=== PATIENT | female | born 1995 | race Caucasian/White ===

== ENCOUNTER → 2020-02-06 | Outpatient (CLI) | payer MEDICAID ==
--- NOTE | 2020-02-06 12:23 | US ---
EXAMINATION TYPE: US OB >= 14 wk fetus DATE OF EXAM: 02/06/2020 COMPARISON: None CLINICAL HISTORY: 24-year-old female O36.63X0 Larger for dates TECHNIQUE: Transabdominal (TA) FINDINGS: GESTATIONAL AGE / DATING Physician Established: (36 weeks/1 day) EDC: 03/04/2020 Dates by LMP: (36 weeks/1 day) EDC: 03/04/2020 Dates by First Scan: No previous Dates by Current Scan: (35 weeks/6 days) EDC: 03/06/2020 Beta HCG (if available): NA SURVEY IUP: Single PLACENTA: Anterior; several venous lakes are noted with largest mid placenta = 2.1 x 1.5 x 1.9cm PREVIA: No Previa CHADWICK: 13.2 cm Normal CERVICAL LENGTH (transabdominal: norm > 3.0cm): 3.5 cm BIOMETRY PRESENTATION: Vertex LIE: Longitudinal BPD: 9.1 cm 36 weeks / 5 days HC: 32.2 cm 36 weeks / 3 days AC: 32.4 cm 36 weeks / 2 days FL: 70 cm 35 weeks / 6 days ESTIMATED WEIGHT IN GRAMS: 2889 grams ESTIMATED WEIGHT IN LBS/OZ: 6 lbs. 6 oz. WEIGHT PERCENTAGE BASED ON ESTABLISHED DATES: 54.9% HC/AC: 0.99 Normal FL/AC: 21.63 Normal HEART RATE: 159 bpm RHYTHM: Normal Staff Development Nurse notes: Single, live IUP, 35 weeks/6 days, EDC: 03/06/2020, HR 159bpm; placental venous la kes are noted. IMPRESSION: 1. Single live intrauterine with estimated gestational age of 36 weeks 1 day by LMP. Curren t ultrasound biometry is concordant (35 weeks 6 days) placing the child at the 55th percentile for we ight. 2. Exam not performed for anatomy. 3. A few scattered venous lakes noted in the placenta measuring up to 2.1 cm.
== END | disposition home or self-care (01) ==
LOC: RADUSWWP 08:59
PROVIDERS: ATTEND Obstetrics & Gynecology
DX: O36.63X0 Maternal care for excessive fetal growth, third trimester, not applicable or unspecified (principal); Z3A.35 35 weeks gestation of pregnancy
CPT/HCPCS: 76805

== ENCOUNTER 2020-03-01 09:05 | Inpatient (IN) | payer MEDICAID ==
[~2020-03-01 09:05] MED LIST: ROPIVACAINE 5MG/ML 20ML VIAL ONE; SODIUM CHLORIDE 0.9% 100 ML BAG ONE; fentaNYL (PF) 50 MCG/ML 5 ML AMP ONE
[2020-03-01] MEDS ORDERED: TERBUTALINE 1 MG/ML VIAL SQ PRN (09:58)
[2020-03-01] MEDS ORDERED: OXYTOCIN 10 UNIT/ML 1 ML VIAL IM PRN (09:58)
[2020-03-01] MEDS ORDERED: LIDOCAINE 0.5% (PF) 5 MG/ML (50 ML SDV) SQ PRN (09:58)
[2020-03-01] MEDS ORDERED: METHYLERGONOVINE 0.2 MG/ML 1 ML AMP IM PRN (09:58)
[2020-03-01] MEDS ORDERED: CARBOPROST TROMETHAMINE 250 MCG/ML 1 ML AMP IM PRN (09:58)
[2020-03-01] MEDS ORDERED: OXYTOCIN 30 UNITS/500 ML NS 30 UNIT in SALINE 1 500ML.BAG IV SCH (10:00)
[2020-03-01] MEDS: LACTATED RINGERS 1,000 ML IV SCH ×4 (10:32→22:31)
[2020-03-01 10:58] LABS: Basophils % (A) 0 %; Eosinophils # (A) 0.2 k/uL (0-0.7); Eosinophils % (A) 1 %; HCT 36.1 % (34.0-46.0); HGB 11.9 gm/dL (11.4-16.0); Lymphocytes # (A) 2.3 k/uL (1.0-4.8); Lymphocytes % (A) 22 %; MCH 27.6 pg (25.0-35.0); MCHC 32.8 g/dL (31.0-37.0); MCV 83.9 fL (80.0-100.0); Mean Platelet Volume 9.2; Monocytes # (A) 0.4 k/uL (0-1.0); Monocytes % (A) 4 %; Neutrophils # (A) 7.8 k/uL (1.3-7.7); Neutrophils % (A) 72 %; Platelet Count 246 k/uL (150-450); RDW 13.5 % (11.5-15.5); WBC 10.8 k/uL (3.8-10.6)
--- NOTE | 2020-03-01 12:39 | P.HPOB ---
History of Present Illness H&P Date: 03/01/20 Chief Complaint: Leaking of fluid and contractions This patient is a pleasant 24-year-old 1 para 0 female estimated date of confinement 03/04/2020 estimated gestational age 39-4/7 weeks who presents to labor and delivery with complaints of leaking of fluid since 7:30 this morning and some irregular contractions. Patient's care is such that she transferred to [place] at 24 weeks due to a job change. testing and care has been uncomplicated. Review of Systems Genitourinary: Reports Menstruation: Reports amenorrhea Past Medical History Past Medical History: No Reported History History of Any Multi-Drug Resistant Organisms: None Reported, MRSA Date of last positivie culture/infection: 2010 MDRO Source:: knee Additional Past Surgical History / Comment(s): wisdom teeth Past Anesthesia/Blood Transfusion Reactions: No Reported Reaction Past Psychological History: No Psychological Hx Reported Smoking Status: Never smoker Past Alcohol Use History: None Reported Past Drug Use History: None Reported - Past Family History Mother Family Medical History: No Reported History Medications and Allergies Home Medications Medication Instructions Recorded Confirmed Type Pnv,Calcium 72/Iron/Folic Acid 1 tab PO DAILY 03/01/20 03/01/20 History [ Plus Tablet] Allergies Allergy/AdvReac Type Severity Reaction Status Date / Time amoxicillin Allergy Rash/Hives Verified 03/01/20 09:07 Exam Vital Signs Temp Pulse Resp BP 03/01/20 10:31 97.7 F 79 14 121/88 Intake and Output 02/29/20 03/01/20 03/01/20 22:59 06:59 14:59 Other: Weight 95.708 kg - OBG Physical Exam Abdomen: bowel sounds normal, no diffuse tenderness, no bruit present, no guarding noted, no hepatomegaly, no splenomegaly, no mass Vulva: both: normal Vagina: normal moisture, no discharge Cervix: no lesion (Cervix is 3 cm, 90% effaced and -2 station gross rupture membranes ), no discharge Uterus: enlarged (Fundal height is 38 cm) Results blood work shows she is oh positive, rubella immune, RPR is nonreactive, hepatitis B is negative, HIV is nonreactive, ultrasounds have been normal, Glucola was normal, group B strep was negative. Result Diagrams: 03/01/20 10:30 Abnormal Lab Results - Last 24 Hours (Table) 03/01/20 Range/Units 10:30 WBC 10.8 H (3.8-10.6) k/uL Neutrophils # 7.8 H (1.3-7.7) k/uL Assessment and Plan Assessment: This is a pleasant 24-year-old 1 para 0 female 39-4/7 weeks gestation admitted to labor and delivery with spontaneous rupture membranes in early labor. Plan is augmentation of labor as necessary and anticipate vaginal delivery. (1) 39 weeks gestation of Current Visit: Yes Status: Acute Code(s): Z3A.39 - 39 WEEKS GESTATION OF SNOMED Code(s): 13265242 (2) Spontaneous rupture of amniotic membranes Current Visit: Yes Status: Acute Code(s): [id number] - SNOMED Code(s): 245506632
[2020-03-01] MEDS ORDERED: ROPIVACAINE 100 MG, fentaNYL (PF) 200 MCG in SODIUM CHLORIDE 0.9% 76 ML EPIDURAL ONE (14:04)
[2020-03-01] MEDS ORDERED: diphenhydrAMINE 50 MG/ML 1 ML VIAL IVP PRN (20:27)
[2020-03-01] MEDS ORDERED: BENZOCAINE/MENTHOL SPRAY 1 GM/SPRAY AEROSOL TOPICAL PRN (20:27)
[2020-03-01] MEDS ORDERED: HYDROCORTISONE 2.5% RECTAL CREAM 30 GM TUBE RECTAL PRN (20:27)
[2020-03-01] MEDS ORDERED: ZOLPIDEM 5 MG TAB PO PRN (20:27)
[2020-03-01] MEDS ORDERED: LANOLIN CREAM 5 GM TUBE TOPICAL PRN (20:27)
[2020-03-01] MEDS ORDERED: diphenhydrAMINE 25 MG CAP PO PRN (20:27)
[2020-03-01] MEDS ORDERED: bisacodyL 10 MG SUPP RECTAL PRN (20:27)
[2020-03-01] MEDS ORDERED: SIMETHICONE 80 MG CHEWABLE PO PRN (20:27)
[2020-03-01] MEDS ORDERED: OXYTOCIN 20 UNITS/1000 ML NS 1,000 ML IV SCH (20:30)
--- NOTE | 2020-03-01 20:35 | P.PROBDLV ---
Vaginal Delivery Note - . Vaginal Delivery Note: Normal vaginal delivery viable male infant Apgars 7 and 8 delivery time is 1923 hrs. Please see dictated H&P for intimate details of this patient's admission. Brief summary is a pleasant 24-year-old 1 para 0 female estimated date of confinement 03/04/2020 estimated gestational age 39-4/7 weeks who is admitted earlier today with complaints of spontaneous rupture membranes. On admission patient had a positive amnio sure however she had scant clear fluid. heart tones are category 1. Labor was augmented with Pitocin. Patient progressed and then get an epidural for pain control. At approximately 8-9 cm she did develop a low-grade temperature to 99 to at that time she was given 2 g of Ancef. Patient's baby did have reassuring heart tones but developed some tachycardia but labor progressed quite quickly. Patient got to complete and pushes the head to the perineum. At this time to facilitate delivery due to the tachycardia, I infiltrated the posterior perineum midline episiotomy is made. With the next push we have controlled delivery of 's head over the perineum. Mouth and nares are bulb suctioned. There is a loose cord. With gentle downward traction we then have delivery the anterior and posterior shoulder and rest this 's body. This is a vigorous viable male Apgars are 7 and 8 delivery time is 1923 hrs. has spontaneous respiration and grossly appears normal. The placenta is then spontaneously delivered intact. The umbilical cord was doubly clamped and cut prior to this and appeared to be trivascular. Infant's position was straight occiput anterior. Inspection of the perineum shows a second-degree laceration and a right labial laceration. These are both repaired with 3-0 Vicryl usual fashion with excellent reapproximation. Of note the patient did feel warm at this time and a repeat temperature shortly 100.2. For this reason, I'm going to continue some IV Ancef. Baby is also going to be assessed in special care due to the tachycardia and intrapartum fever. All counts are correct 3. and mother are stable.
[2020-03-01] MEDS: ACETAMINOPHEN TAB 325 MG TAB PO PRN (20:57)
[2020-03-01] MEDS: SENNOSIDES-DOCUSATE SODIUM 1 EACH TAB PO SCH (22:31)
[2020-03-02] MEDS: IBUPROFEN 600 MG TAB PO PRN ×3 (04:26→20:54)
--- NOTE | 2020-03-02 05:28 | P.PNOBGVD ---
Subjective - Subjective Patient reports: Reports appetite normal, Reports voiding normally, Reports pain well controlled, Reports ambulating normally [place]: doing well Objective - Latest Vital Signs Latest vital signs: Vital Signs Temp Pulse Resp BP 03/02/20 04:00 98.4 F 85 16 120/78 03/02/20 00:00 98.0 F 98 16 112/67 03/01/20 21:38 103 H 16 129/77 03/01/20 21:08 98.8 F 111 H 14 129/76 03/01/20 20:38 96 16 126/77 03/01/20 20:23 99.8 F H 111 H 16 124/79 03/01/20 20:08 99.9 F H 115 H 16 128/78 03/01/20 19:53 99.9 F H 118 H 16 117/60 03/01/20 19:38 100.3 F H 126 H 16 115/66 03/01/20 10:31 97.7 F 79 14 121/88 Intake and Output 03/01/20 03/01/20 03/02/20 14:59 22:59 06:59 Intake Total 2200 Balance 2200 Intake: IV 2200 Other: # Voids 1 1 Weight 95.708 kg - Exam Lungs: bilateral: normal Chest: Normal S1, Normal S2 Extremities: Present: normal Abdomen: Present: normal appearance, soft Uterus: Present: normal, firm - Labs Labs: Abnormal Lab Results - Last 24 Hours (Table) 03/01/20 Range/Units 10:30 WBC 10.8 H (3.8-10.6) k/uL Neutrophils # 7.8 H (1.3-7.7) k/uL Assessment and Plan Assessment: day #1. Patient is resting without new complaints. Vital signs are stable and she is afebrile. Uterus is firm nontender she's having normal lochia. CBC is pending. Plan today is to check a CBC and if remains afebrile most likely discontinue her IV antibiotics however I will most likely give her a course of oral antibiotics. Patient's baby is in special care but is improving, this appears to be most likely from infection. Patient be seen by Dr. Fu tomorrow and most likely go home at that time (1) 39 weeks gestation of Current Visit: Yes Status: Acute Code(s): Z3A.39 - 39 WEEKS GESTATION OF SNOMED Code(s): 17693493 (2) Spontaneous rupture of amniotic membranes Current Visit: Yes Status: Acute Code(s): CHW5312 - SNOMED Code(s): 883127473
[2020-03-02 06:58] LABS: Basophils % (A) 0 %; Eosinophils # (A) 0.1 k/uL (0-0.7); Eosinophils % (A) 1 %; HCT 31.7 % (34.0-46.0); HGB 10.3 gm/dL (11.4-16.0); Lymphocytes # (A) 3.2 k/uL (1.0-4.8); Lymphocytes % (A) 19 %; MCH 27.8 pg (25.0-35.0); MCHC 32.5 g/dL (31.0-37.0); MCV 85.5 fL (80.0-100.0); Mean Platelet Volume 8.9; Monocytes # (A) 0.8 k/uL (0-1.0); Monocytes % (A) 5 %; Neutrophils # (A) 12.5 k/uL (1.3-7.7); Neutrophils % (A) 75 %; Platelet Count 202 k/uL (150-450); RBC 3.71 m/uL (3.80-5.40); RDW 13.6 % (11.5-15.5); WBC 16.7 k/uL (3.8-10.6)
[2020-03-02] MEDS: SENNOSIDES-DOCUSATE SODIUM 1 EACH TAB PO SCH ×2 (08:18→20:17)
[2020-03-02] MEDS: ACETAMINOPHEN TAB 325 MG TAB PO PRN ×2 (10:16→18:38)
[2020-03-02] MEDS: CEPHALEXIN 500 MG CAP PO SCH ×3 (12:44→19:32)
[2020-03-03] MEDS: ACETAMINOPHEN TAB 325 MG TAB PO PRN ×2 (00:13→07:50)
[2020-03-03] MEDS: CEPHALEXIN 500 MG CAP PO SCH ×3 (00:13→15:39)
[2020-03-03 00:25] VITALS: RESP 18
[2020-03-03] MEDS: IBUPROFEN 600 MG TAB PO PRN ×2 (03:47→15:32)
--- NOTE | 2020-03-03 09:39 | P.DS ---
Providers Date of admission: 03/01/20 10:29 Expected date of discharge: 03/03/20 Attending physician: Len Vega Primary care physician: Stated None - Discharge Diagnosis(es) (1) Status post normal vaginal delivery Current Visit: Yes Status: Acute Hospital Course: Patient presented for induction of labor. She underwent normal vaginal delivery. Due to her intrapartum fever she did receive IV antibiotics and we'll go home on oral antibiotics per Dr. Vega. She denies nausea, vomiting, chest pain, shortness of breath or any calf pain. Her lochia is minimal and the uterine cramping is minimal as well. She'll be discharged home day #2 in stable condition to follow-up with Dr. Vega in 6 weeks. Plan - Discharge Summary Discharge Rx Participant: Yes New Discharge Prescriptions: New Cephalexin [Keflex] 500 mg PO Q6HR 7 Days #28 cap Ibuprofen [Motrin] 600 mg PO Q6HR PRN #40 tab PRN Reason: Mild Pain Or Fever >= 100.5 No Action Pnv,Calcium 72/Iron/Folic Acid [ Plus Tablet] 1 tab PO DAILY Discharge Medication List Pnv,Calcium 72/Iron/Folic Acid [ Plus Tablet] 1 tab PO DAILY 03/01/20 [History] Cephalexin [Keflex] 500 mg PO Q6HR 7 Days #28 cap 03/02/20 [Rx] Ibuprofen [Motrin] 600 mg PO Q6HR PRN #40 tab 03/02/20 [Rx] Follow up Appointment(s)/Referral(s): Len Vega MD [STAFF PHYSICIAN] - 6 Weeks Patient Instructions/Handouts: Vaginal Delivery (DC) Activity/Diet/Wound Care/Special Instructions: [place] or anything per vagina for 6 weeks. Please call if any fever, chills, excessive vaginal bleeding, and/or abdominal pain Discharge Disposition: HOME SELF-CARE
[2020-03-03] MEDS: SENNOSIDES-DOCUSATE SODIUM 1 EACH TAB PO SCH (11:07)
[2020-03-03 15:36] VITALS: PULSE 83; TEMP 98.9
[2020-03-03 16:07] VITALS: BP 139/96
[2020-03-03 16:48] LABS: Basophils % (A) 0 %; Eosinophils # (A) 0.1 k/uL (0-0.7); Eosinophils % (A) 1 %; HCT 30.9 % (34.0-46.0); HGB 10.1 gm/dL (11.4-16.0); Lymphocytes # (A) 2.5 k/uL (1.0-4.8); Lymphocytes % (A) 22 %; MCH 28.1 pg (25.0-35.0); MCHC 32.8 g/dL (31.0-37.0); MCV 85.6 fL (80.0-100.0); Mean Platelet Volume 8.6; Monocytes # (A) 0.5 k/uL (0-1.0); Monocytes % (A) 4 %; Neutrophils # (A) 8.3 k/uL (1.3-7.7); Neutrophils % (A) 72 %; Platelet Count 222 k/uL (150-450); RBC 3.61 m/uL (3.80-5.40); RDW 13.7 % (11.5-15.5); WBC 11.6 k/uL (3.8-10.6)
[2020-03-03 16:50] LABS: Appearance,Urine Clear (Clear); Bilirubin,Urine Negative (Negative); Blood,Urine Negative (Negative); Color,Urine Colorless; Glucose,Urine (UA) Negative (Negative); Ketones,Urine Negative (Negative); Leukocyte Esterase,Urine Negative (Negative); Nitrite,Urine Negative (Negative); PH, Urine 6.5 (5.0-8.0); Protein,Urine Negative (Negative); Specific Gravity,Urine 1.006 (1.001-1.035); Urobilinogen,Urine <2.0 mg/dL (<2.0)
[2020-03-03 16:58] LABS: ALT 17 U/L (4-34); AST 34 U/L (14-36); African American GFR (CKD) >90 (>60 ml/min/1.73 sqM); Blood Urea Nitrogen 7 mg/dL (7-17); LDH 662 U/L (313-618); Non-African American GFR(CKD) >90 (>60 ml/min/1.73 sqM)
[2020-03-03 17:06] LABS: Creatinine,Urine Random 41.4 mg/dL
[2020-03-03 17:07] LABS: Protein/Creatinine Ratio,Urine 0.288
== END 2020-03-03 15:50 | disposition home or self-care (01) | DRG 806 ==
LOC: FBPOP 09:05 → 4FBP 10:29
PROVIDERS: ADMIT Obstetrics & Gynecology; ATTEND Obstetrics & Gynecology
PROC: 0KQM0ZZ Repair Perineum Muscle, Open Approach (ICD-10-PCS; principal; 2020-03-01)
PROC: 00HU33Z Insertion of Infusion Device into Spinal Canal, Percutaneous Approach (ICD-10-PCS; principal; 2020-03-01)
PROC: 3E0R3NZ Introduction of Analgesics, Hypnotics, Sedatives into Spinal Canal, Percutaneous Approach (ICD-10-PCS; principal; 2020-03-01)
PROC: 10E0XZZ Delivery of Products of Conception, External Approach (ICD-10-PCS; principal; 2020-03-01)
DX: O42.02 Full-term premature rupture of membranes, onset of labor within 24 hours of rupture (principal); O75.2 Pyrexia during labor, not elsewhere classified; Z37.0 Single live birth; O70.1 Second degree perineal laceration during delivery; O76 Abnormality in fetal heart rate and rhythm complicating labor and delivery; Z3A.39 39 weeks gestation of pregnancy; O69.81X0 Labor and delivery complicated by cord around neck, without compression, not applicable or unspecified; Z88.1 Allergy status to other antibiotic agents
CPT/HCPCS: 59025; 81003; 82565; 82570; 83615; 84112; 84156; 84450; 84460; 84520; 84550; 85025; 86850; 86900; 86901; 99213

== ENCOUNTER → 2022-04-23 | Outpatient (CLI) | payer MEDICAID ==
--- NOTE | 2022-04-23 09:07 | US ---
EXAMINATION TYPE: Transabdominal DATE OF EXAM: 04/23/2022 8:12 AM COMPARISON: NONE CLINICAL HISTORY: Z36.89 CONFIRM GESTATIONAL AGE AND VIABILITY. EXAM PERFORMED: Transabdominal (TA) EXAM MEASUREMENTS: GESTATIONAL AGE / DATING Physician Established: Not yet established Dates by LMP: LMP unknown Dates by First Scan: No previous this is first scan Dates by Current Scan for: (10 weeks/0 days) EDC: 11/19/2022 MATERNAL ANATOMY Uterus: 10.3 x 6.6 x 7.9cm Right Ovary: 2.9 x 1.4 x 1.8cm Left Ovary: 4.3 x 2.0 x 3.4cm Post CDS / Adnexa: wnl Presence of free fluid: no Presence of corpus luteal cyst: left ovary: 2.2 x 1.5 x 2.3cm Presence of subchorionic bleed: no GESTATION / SURVEY CRL: 3.1cm (10 weeks/0 days) Yolk Sac (normal less than 6mm): not seen Heart Rate: 174 bpm Rhythm: Normal IUP: Viable IUP Single live intrauterine gestation as gestational sac and pole are seen. The yolk sac is not cl early identified. No free fluid in pelvis. Both ovaries are present. There is 2.2 cm hypoechoic lesion in the periphery left ovary suspected cor pus luteal cyst. No suspicious extra ovarian adnexal masses. IMPRESSION: Single live uterine gestation, mean crown-rump length 3.1 cm corresponding to 10 week 0 d ay old fetus.
== END | disposition home or self-care (01) ==
LOC: RADUSWWP 07:53
PROVIDERS: ATTEND Obstetrics & Gynecology
DX: Z36.89 Encounter for other specified antenatal screening (principal); Z3A.10 10 weeks gestation of pregnancy
CPT/HCPCS: 76801

== ENCOUNTER → 2022-06-23 | Outpatient (CLI) | payer MEDICAID ==
--- NOTE | 2022-06-23 11:02 | US ---
EXAMINATION TYPE: US OB anatomy transabd DATE OF EXAM: 06/23/2022 COMPARISON: Prior ultrasound April 23, 2022 HISTORY: O36.61X0 MATERNAL CARE FOR EXCESS GROWTH, FI TECHNIQUE: Transabdominal (TA) EXAM MEASUREMENTS: GESTATIONAL AGE / DATING Physician Established: (19 weeks/0 days) EDC: 11/17/22 Dates by LMP: LMP unknown Dates by First Scan: (18 weeks/5 days) EDC: 11/19/22 Dates by Current Scan for: (19 weeks/1 days) EDC: 11/16/22 SURVEY IUP: Single PLACENTA: Anterior PREVIA: No previa CHADWICK: 11.4 cm Normal CERVICAL LENGTH (transabdominal: norm > 3.0cm): 4.2 cm BIOMETRY PRESENTATION: Variable LIE: Transverse lie with head maternal LT BPD: 4.3 cm 19 weeks / 1 days HC: 16.2 cm 19 weeks / 0 days AC: 13.3 cm 18 weeks / 6 days FL: 3.0 cm 19 weeks / 2 days ESTIMATED WEIGHT IN GRAMS: 269 grams ESTIMATED WEIGHT IN LBS/OZ: 0 lbs. 9 oz. WEIGHT PERCENTAGE BASED ON ESTABLISHED DATE: 46 % HC/AC: 1.22 Normal FL/AC: 23% HEART RATE: 149 bpm RHYTHM: Normal ANATOMY SEEN (within normal limits): * Lateral Vent (< 1 cm) 0.5 cm * Cisterna Magna (< 1.1 cm) 0.5 cm * Nuchal Fold (< 0.6 cm) 0.3 cm * Cerebellum (varies with age) 1.6 cm Choroid Plexus (bilateral) Midline Falx Cavus Septi Pellucidi Four Chamber Heart Outflow tracts: LVOT/RVOT Stomach Situs Nose / Lips Diaphragm Kidneys (bilateral) Bladder Cord Insert Three Vessel Cord Longitudinal Spine Transverse Spine Arms (bilateral) Legs (bilateral) Single live intrauterine gestation is redemonstrated. No cervical thinning. The measured amniotic flu id index within normal limits. Variable presentation to fetus noted. No placenta previa. biomet ry measurements congruent and within normal limits. Detailed anatomical survey shows no suspicious ab normality during real-time scanning. There is suboptimal visualization of nose and lips and out flow chambers from the heart along with 2 view entire spine on still images saved. IMPRESSION: As above.
== END | disposition home or self-care (01) ==
LOC: RADUSWWP 09:47
PROVIDERS: ATTEND Obstetrics & Gynecology
DX: O36.61X0 Maternal care for excessive fetal growth, first trimester, not applicable or unspecified (principal); Z3A.19 19 weeks gestation of pregnancy
CPT/HCPCS: 76811

== ENCOUNTER → 2022-09-02 | Outpatient (CLI) | payer MEDICAID ==
--- NOTE | 2022-09-02 15:13 | US ---
EXAMINATION TYPE: US OB >= 14 wk fetus DATE OF EXAM: 09/02/2022 COMPARISON: US 06/23/22 CLINICAL HISTORY: O36.63X0 LARGE FOR DATES. Large for dates. Per Gena at office, growth scan and an atomy that was suboptimal on prior report to be scanned-full anatomy not necessary. . TECHNIQUE: Transabdominal (TA) GESTATIONAL AGE / DATING Physician Established: (29 weeks/1 day) EDC: 11/17/2022 Dates by LMP: Unknown Dates by First Scan: (28 weeks/6 days) EDC: 11/19/2022 Dates by Current Scan: (28 weeks/4 days) EDC: 11/21/2022 SURVEY IUP: Single PLACENTA: Anterior. Slightly heterogeneous. PREVIA: No CHADWICK: 14.6 cm Normal CERVICAL LENGTH (transabdominal: norm > 3.0cm): 3.5 cm BIOMETRY PRESENTATION: Vertex BPD: 7.13 cm 28 weeks / 4 days HC: 26.54 cm 28 weeks / 6 days AC: 25.11 cm 29 weeks / 2 days FL: 5.52 cm 29 weeks / 1 day ESTIMATED WEIGHT IN GRAMS: 1345 grams ESTIMATED WEIGHT IN LBS/OZ: 2 lbs. 15 oz. WEIGHT PERCENTAGE BASED ON ESTABLISHED DATES: 37% HC/AC: 1.06 Normal FL/AC: 21.97 Normal HEART RATE: 142 bpm RHYTHM: Normal Anatomy on prior exam that was suboptimal: Nose/lips, RVOT/LVOT, Spine Trans and Sag. Nose/Lips, 4 chamber heart, and spine were imaged on today's scan, appear to be wnl. RVOT and LVOT again were not clearly seen, patient is scheduled for OB call back. IMPRESSION: 1. Limited evaluation of the anatomy appeared normal. 2. The right and left ventricular outflow tracts could not be reliably evaluated on the current exam. 3. Single intrauterine gestation estimated at 28 weeks 4 days gestation based on the current ultrasou nd measurements. Cardiac activity measures 142 bpm.
== END | disposition home or self-care (01) ==
LOC: RADUSWWP 08:52
PROVIDERS: ATTEND Obstetrics & Gynecology
DX: O36.63X0 Maternal care for excessive fetal growth, third trimester, not applicable or unspecified (principal); Z3A.28 28 weeks gestation of pregnancy
CPT/HCPCS: 76805

== ENCOUNTER → 2022-10-14 | Outpatient (CLI) | payer MEDICAID ==
--- NOTE | 2022-10-14 08:20 | US ---
EXAMINATION TYPE: US OB >= 14 wk fetus DATE OF EXAM: 10/14/2022 COMPARISON: US CLINICAL INDICATION: Female, 27 years old with history of O36.63X0; Growth TECHNIQUE: Transabdominal (TA) GESTATIONAL AGE / DATING Physician Established: (35 weeks/1 days) EDC: 11/17/2022 Dates by LMP: LMP unknown Dates by First Scan: (34 weeks/6 days) EDC: 11/19/2022 Dates by Current Scan: (34 weeks/6 days) EDC: 11/19/2022 SURVEY IUP: Single PLACENTA: Anterior PREVIA: No Previa CHADWICK: 14.6 cm Normal CERVICAL LENGTH (transabdominal: norm > 3.0cm): 4.0 cm BIOMETRY PRESENTATION: Vertex BPD: 8.7 cm 35 weeks / 1 days HC: 31.9 cm 35 weeks / 6 days AC: 31.2 cm 35 weeks / 1 days FL: 6.7 cm 34 weeks / 4 days ESTIMATED WEIGHT IN GRAMS: 2589 grams ESTIMATED WEIGHT IN LBS/OZ: 5 lbs. 11 oz. WEIGHT PERCENTAGE BASED ON ESTABLISHED DATES: 45.5% HC/AC: 1.02 Normal FL/AC: 22 Normal HEART RATE: 142 bpm RHYTHM: Normal Bladder, Stomach, Situs, 3V cord, Diaphragm, Kidneys, and 4 Chamber heart visualized and wnl/ All ot her anatomy not visualized due to position and age Growth in 45th percentile IMPRESSION: Single live intrauterine gestation with ultrasound age 34 weeks 6 days, additional information as anupama cribed above.
== END | disposition home or self-care (01) ==
LOC: RADUSWWP 07:00
PROVIDERS: ATTEND Obstetrics & Gynecology
DX: O36.63X0 Maternal care for excessive fetal growth, third trimester, not applicable or unspecified (principal); Z3A.35 35 weeks gestation of pregnancy
CPT/HCPCS: 76805

== ENCOUNTER 2022-11-09 19:14 | Inpatient (IN) | payer MEDICAID ==
[2022-11-09] MEDS ORDERED: LIDOCAINE 0.5% (PF) 5 MG/ML (50 ML SDV) SQ PRN (19:58)
[2022-11-09] MEDS ORDERED: CARBOPROST TROMETHAMINE 250 MCG/ML 1 ML AMP IM PRN (19:58)
[2022-11-09] MEDS ORDERED: OXYTOCIN 10 UNIT/ML 1 ML VIAL IM PRN (19:58)
[2022-11-09] MEDS ORDERED: METHYLERGONOVINE 0.2 MG/ML 1 ML AMP IM PRN (19:58)
[2022-11-09] MEDS ORDERED: TERBUTALINE 1 MG/ML VIAL SQ PRN (19:58)
[2022-11-09] MEDS ORDERED: TRANEXAMIC ACID IN NACL,ISO-OS 1,000 MG in EMPTY BAG 1 BAG IV PRN (19:58)
[2022-11-09] MEDS ORDERED: miSOPROStoL 200 MCG TAB PO PRN (19:58)
[2022-11-09] MEDS ORDERED: OXYTOCIN 30 UNITS/500 ML NS 30 UNIT in SALINE 1 500ML.BAG IV SCH (20:00)
[2022-11-09] MEDS: LACTATED RINGERS 1,000 ML IV SCH (20:15)
[2022-11-09 20:33] LABS: Basophils % (A) 0 %; Eosinophils # (A) 0.2 k/uL (0-0.7); Eosinophils % (A) 2 %; HCT 35.8 % (34.0-46.0); HGB 12.2 gm/dL (11.4-16.0); Lymphocytes # (A) 2.8 k/uL (1.0-4.8); Lymphocytes % (A) 31 %; MCHC 34.1 g/dL (31.0-37.0); Mean Platelet Volume 9.1; Monocytes # (A) 0.3 k/uL (0-1.0); Monocytes % (A) 4 %; Neutrophils # (A) 5.8 k/uL (1.3-7.7); Neutrophils % (A) 63 %; Platelet Count 234 k/uL (150-450); RBC 4.22 m/uL (3.80-5.40); RDW 13.6 % (11.5-15.5); WBC 9.2 k/uL (3.8-10.6)
--- NOTE | 2022-11-09 20:59 | P.HPOB ---
History of Present Illness H&P Date: 11/09/22 Chief Complaint: Leaking fluid This patient is a pleasant 27-year-old 2 para 1 female estimated date of confinement 11/17/2022 estimated gestational age 38-6/7 weeks who presents to labor and delivery with complaints of gush of fluid at 2:00 this afternoon. care has been uncomplicated. She did have suboptimal anatomy ultrasound here at [facility] therefore she was referred to maternal- medicine and was found to have normal anatomy. care has been otherwise uncomplicated. She was placed on baby aspirin this due to history of hypertension with her last . Review of Systems Genitourinary: Reports Menstruation: Reports amenorrhea Past Medical History Past Medical History: No Reported History Additional Past Medical History / Comment(s): Patient previous term vaginal delivery baby boy 7 pounds History of Any Multi-Drug Resistant Organisms: None Reported, MRSA Date of last positivie culture/infection: 2010 MDRO Source:: knee Past Surgical History: No Surgical Hx Reported Additional Past Surgical History / Comment(s): wisdom teeth Past Anesthesia/Blood Transfusion Reactions: No Reported Reaction Past Psychological History: No Psychological Hx Reported Smoking Status: Never smoker Past Alcohol Use History: None Reported Past Drug Use History: None Reported - Past Family History Mother Family Medical History: No Reported History Medications and Allergies Home Medications Medication Instructions Recorded Confirmed Type Vit No.180/Iron/Folic 1 tab PO DAILY 03/01/20 03/01/20 History [ Plus Tablet] RX: Aspirin 81 mg PO DAILY 11/09/22 11/09/22 History Allergies Allergy/AdvReac Type Severity Reaction Status Date / Time amoxicillin Allergy Rash/Hives Verified 11/09/22 19:27 Exam Vital Signs Temp Pulse Resp BP Pulse Ox 11/09/22 19:53 97.9 F 102 H 16 133/81 97 Intake and Output 11/09/22 11/09/22 11/09/22 06:59 14:59 22:59 Other: Weight 98.43 kg - OBG Physical Exam Abdomen: bowel sounds normal, no diffuse tenderness, no bruit present, no guarding noted, no hepatomegaly, no splenomegaly, no mass Vulva: both: normal Vagina: normal moisture, no discharge Cervix: no lesion (Cervix is 2-3 soft 50% effaced), no discharge Uterus: enlarged Results blood work shows she is O positive, rubella immune, RPR nonreactive, HIV is nonreactive, hepatitis B and C were negative, Glucola was normal, group B strep was negative, ultrasounds including cardiac echo have been normal. Result Diagrams: 11/09/22 20:20 Assessment and Plan Assessment: This is a pleasant 27-year-old 2 para 1 female 38-6/7 weeks gestation who presents to labor and delivery with spontaneous rupture membranes at 2:00 this afternoon. Patient is having rare contractions. Plan is Pitocin augmentation of labor and anticipate vaginal delivery. (1) 38 weeks gestation of Current Visit: Yes Status: Acute Code(s): Z3A.38 - 38 WEEKS GESTATION OF SNOMED Code(s): 33269378 (2) Spontaneous rupture of amniotic membranes Current Visit: No Status: Acute Code(s): EDR8664 - SNOMED Code(s): 672190948
[2022-11-09] MEDS ORDERED: BUTORPHANOL 2 MG/ML 1 ML VIAL IV PRN (22:48)
[2022-11-09] MEDS ORDERED: NALBUPHINE 10 MG/ML (10 ML MDV) IV PRN (22:58)
[2022-11-10] MEDS ORDERED: SODIUM CHLORIDE 0.9% 100 ML BAG ONE (00:05)
[2022-11-10] MEDS ORDERED: fentaNYL (PF) 50 MCG/ML 5 ML AMP ONE (00:05)
[2022-11-10] MEDS ORDERED: ROPIVACAINE 5 MG/ML 20 ML AMPULE ONE (00:05)
[2022-11-10] MEDS: LACTATED RINGERS 1,000 ML IV SCH (00:46)
[2022-11-10] MEDS ORDERED: SIMETHICONE 80 MG CHEWABLE PO PRN (01:57)
[2022-11-10] MEDS ORDERED: LANOLIN CREAM 5 GM TUBE TOPICAL PRN (01:57)
[2022-11-10] MEDS ORDERED: diphenhydrAMINE 25 MG CAP PO PRN (01:57)
[2022-11-10] MEDS ORDERED: diphenhydrAMINE 50 MG/ML 1 ML VIAL IVP PRN (01:57)
[2022-11-10] MEDS ORDERED: BENZOCAINE/MENTHOL SPRAY 1 GM/SPRAY AEROSOL TOPICAL PRN (01:57)
[2022-11-10] MEDS ORDERED: HYDROCORTISONE 2.5% RECTAL CREAM 30 GM TUBE RECTAL PRN (01:57)
[2022-11-10] MEDS ORDERED: bisacodyL 10 MG SUPP RECTAL PRN (01:57)
[2022-11-10] MEDS ORDERED: ACETAMINOPHEN TAB 325 MG TAB PO PRN (01:57)
[2022-11-10] MEDS ORDERED: ZOLPIDEM 5 MG TAB PO PRN (01:57)
[2022-11-10] MEDS ORDERED: OXYTOCIN 30 UNITS/500 ML NS 30 UNIT in SALINE 1 500ML.BAG IV SCH (02:00)
--- NOTE | 2022-11-10 02:01 | P.PROBDLV ---
Vaginal Delivery Note - . Vaginal Delivery Note: Normal spontaneous vaginal delivery viable male infant Apgars 8 and 9 delivery time is 0131 hours. Please see dictated H&P for intimate details of this patient's admission. Brief summary this is a pleasant 27-year-old 2 para 1 female 38-6/7 weeks gestation admitted to labor and delivery spontaneous rupture membranes proximally 2:00 yesterday. On admission patient is 2-3 cm dilated and found to be grossly ruptured. She has Pitocin augmentation of labor at this time. Labor progresses quickly and she does get an epidural for pain control. Patient gets to complete pushes the head to the perineum. Posterior perineum is supported we have controlled delivery of 's head over the intact perineum. Mouth and nares are bulb suctioned. Infant's position straight occiput anterior presentation. Mouth and nares are bulb suctioned. There is a very loose nuchal cord which she continues to push and deliver through easily. This is a vigorous viable male Apgars are 8 and 9 delivery time is 0131 hours. Infant has spontaneous respiration and good cry and grossly appears normal. Due to the patient's previous baby having some jaundice issues me immediately clamped the cord and cut it. It appears to be trivascular. The placenta is th en spontaneously delivered intact. Inspection of perineum shows second-degree midline laceration is repaired with 3-0 Vicryl usual fashion. Excellent reapproximation is noted. All counts are correct 3. There are no complications. Infant and mother are stable delivery room.
--- NOTE | 2022-11-10 07:15 | P.MSEPDOC ---
Presenting Problems - Arrival Data Date of Arrival on Unit: 11/09/22 Time of Arrival on Unit: 19:14 Mode of Transport: Ambulatory - Complaint OB-Reason for Admission/Chief Complaint: Rule Out SROM Comment: Patient presents to triage with complaints of leaking clear fluid, starting at 1400 this afternoon. Medical History - Information : 2 Para: 1 Term: 1 : 0 Abortions: Spontaneous or Elective: 0 Number of Living Children: 1 - Gestational Age Gestational Age by ALVARO (wks/days): 38 Weeks and 6 Days Review of Systems - Review of Systems Constitutional: No problems Breast: No problems ENT: No problems Cardiovascular: No problems Respiratory: No problems Gastrointestinal: No problems Genitourinary: No problems Musculoskeletal: No problems Neurological: No problems Skin: No problems Vital Signs - Temperature Temperature: 96.1 F Temperature Source: Temporal Artery Scan - Pulse Pulse Oximetery Pulse Rate: 85 Pulse Assessment Method: Pulse Oximetry - Respirations Respiratory Rate: 16 Oxygen Delivery Method: Room Air O2 Sat by Pulse Oximetry: 100 - Blood Pressure Right Arm Blood Pressure: 117/73 Blood Pressure Mean: 87 Blood Pressure Source: Automatic Cuff Medical Screen Scoring - Cervical Exam Dilation (cm): 2.5 Effacement (%): 50 Station: -2 Membranes: Ruptured - Uterine Contractions Intensity: Absent Resting: Soft to palpation - Assessment - Baby A Baseline FHR: 140 Heart Rate - NICHD Category: Category I (Normal) NST: Reactive Physician Notification - Physician Notified Physician Notified Date: 11/09/22 Physician Notified Time: 19:46 Physician: Len Vega New Order Received: Yes (Admit patient for SROM, augmentation with oxytocin) Maternal Triage Index - Maternal Triage Index Presenting for scheduled procedure w/no complaint: No - Stat/Priority 1 Stat Priority 1: No - Urgent/Priority 2 Urgent Priority 2: No - Prompt/Priority 3 Prompt Priority 3: No - Non-Urgent/Priority 4 Non-Urgent Priority 4: Yes Criteria Met for Priority 4: Patient presents to triage with complaints of leaking clear fluid since [address] Vega called in for report. RN reported on maternal and status, stable vitals, no complaints of contractions at this time, Patient states they were about 12 minutes apart, but has not has once since being in triage. Amnisure was positive, orders given to admit patient and start pitocin, can have what she would like for pain. Disposition - Disposition OB Disposition: Admit I agree with the RN Medical Screening Exam: Yes Case reviewed; plan agreed upon as documented in EMR&OBIX.: Yes Diagnosis: ENCOUNTER FOR FULL-TERM UNCOMPLICATED DELIVERY
[2022-11-10] MEDS: SENNOSIDES-DOCUSATE SODIUM 1 EACH TAB PO SCH ×2 (08:47→21:10)
[2022-11-10] MEDS: IBUPROFEN 600 MG TAB PO PRN ×2 (08:47→16:21)
[2022-11-11] MEDS: IBUPROFEN 600 MG TAB PO PRN ×2 (01:59→07:46)
[2022-11-11 04:26] VITALS: RESP 16
--- NOTE | 2022-11-11 05:28 | P.PNOBGVD ---
Subjective - Subjective Patient reports: Reports appetite normal, Reports voiding normally, Reports pain well controlled, Reports ambulating normally : doing well Objective - Latest Vital Signs Latest vital signs: Vital Signs Temp Pulse Resp BP Pulse Ox 11/11/22 04:00 97.6 F 89 16 108/76 11/11/22 00:00 97.8 F 77 18 120/69 11/10/22 20:00 97.5 F L 78 18 116/77 11/10/22 16:15 98.4 F 83 16 120/79 11/10/22 12:00 98.0 F 82 16 117/81 11/10/22 08:40 98.5 F 98 16 119/76 11/10/22 07:15 96.1 F L 85 16 117/73 100 Intake and Output 11/10/22 11/10/22 11/11/22 14:59 22:59 06:59 Output Total 125 Balance -125 Output: Urine 125 Other: # Voids 1 1 - Exam Lungs: bilateral: normal Chest: Normal S1, Normal S2 Extremities: Present: normal Abdomen: Present: normal appearance, soft Uterus: Present: normal, firm Assessment and Plan Assessment: day #1. Patient is resting without complaints and wishes to go home. Vital signs are stable she's afebrile. Uterus is firm nontender and she is having normal lochia. My impression this is a normal course. Plan is to continue routine care discharge home later today. (1) 38 weeks gestation of Current Visit: Yes Status: Acute Code(s): Z3A.38 - 38 WEEKS GESTATION OF SNOMED Code(s): 41811342 (2) Spontaneous rupture of amniotic membranes Current Visit: No Status: Acute Code(s): [id number] - SNOMED Code(s): 380476757
--- NOTE | 2022-11-11 05:35 | P.DS ---
Providers Date of admission: 11/09/22 19:46 Expected date of discharge: 11/11/22 Attending physician: Len Vega Primary care physician: Stated None - Discharge Diagnosis(es) (1) 38 weeks gestation of Current Visit: Yes Status: Acute (2) Spontaneous rupture of amniotic membranes Current Visit: No Status: Acute Hospital Course: Please see dictated H&P for intimate details of this patient's admission. Brief summary this is a pleasant 27-year-old 2 para 1 female 38-6/7 weeks who presents to labor and delivery with complaints of leaking of fluid. Patient quickly goes on to have a vaginal delivery viable male . Please see dictated delivery note. Post day #1 patient wishes to go home. Patient's felt be stable for discharge home follow up with me in 6 weeks. Procedures: Normal spontaneous vaginal delivery Patient Condition at Discharge: Good Plan - Discharge Summary New Discharge Prescriptions: New Ibuprofen [Motrin] 600 mg PO Q6HR PRN #40 tab PRN Reason: Mild Pain (Scale 1 To 3) No Action Vit No.180/Iron/Folic [ Plus Tablet] 1 tab PO DAILY Aspirin 81 mg PO DAILY Discharge Medication List Vit No.180/Iron/Folic [ Plus Tablet] 1 tab PO DAILY 03/01/20 [History] Aspirin 81 mg PO DAILY 11/09/22 [History] Ibuprofen [Motrin] 600 mg PO Q6HR PRN #40 tab 11/11/22 [Rx] Follow up Appointment(s)/Referral(s): Len Vega MD [STAFF PHYSICIAN] - 1 Week Patient Instructions/Handouts: Vaginal Delivery (DC) Activity/Diet/Wound Care/Special Instructions: No intercourse or anything per vagina for 6 weeks. Please call if any fever, chills, excessive vaginal bleeding, and/or abdominal pain Discharge Disposition: HOME SELF-CARE
[2022-11-11 07:54] VITALS: BP 122/87; PULSE 85; TEMP 98.3
[2022-11-11] MEDS: SENNOSIDES-DOCUSATE SODIUM 1 EACH TAB PO SCH (08:44)
[2022-11-11 09:43] LABS: Basophils % (A) 0 %; Eosinophils # (A) 0.1 k/uL (0-0.7); Eosinophils % (A) 1 %; HCT 36.2 % (34.0-46.0); HGB 12.1 gm/dL (11.4-16.0); Lymphocytes # (A) 2.3 k/uL (1.0-4.8); Lymphocytes % (A) 26 %; MCH 28.9 pg (25.0-35.0); MCHC 33.4 g/dL (31.0-37.0); MCV 86.3 fL (80.0-100.0); Mean Platelet Volume 8.9; Monocytes # (A) 0.3 k/uL (0-1.0); Monocytes % (A) 4 %; Neutrophils # (A) 5.9 k/uL (1.3-7.7); Neutrophils % (A) 68 %; Platelet Count 204 k/uL (150-450); RBC 4.19 m/uL (3.80-5.40); RDW 13.8 % (11.5-15.5); WBC 8.8 k/uL (3.8-10.6)
== END 2022-11-11 11:30 | disposition home or self-care (01) | DRG 807 ==
LOC: FBPOP 19:14 → 4FBP 19:46
PROVIDERS: ADMIT Obstetrics & Gynecology; ATTEND Obstetrics & Gynecology
PROC: 0KQM0ZZ Repair Perineum Muscle, Open Approach (ICD-10-PCS; principal; 2022-11-10)
PROC: 10E0XZZ Delivery of Products of Conception, External Approach (ICD-10-PCS; principal; 2022-11-10)
DX: O42.02 Full-term premature rupture of membranes, onset of labor within 24 hours of rupture (principal); O69.81X0 Labor and delivery complicated by cord around neck, without compression, not applicable or unspecified; O70.1 Second degree perineal laceration during delivery; Z87.59 Personal history of other complications of pregnancy, childbirth and the puerperium; Z86.14 Personal history of Methicillin resistant Staphylococcus aureus infection; Z79.82 Long term (current) use of aspirin; Z88.0 Allergy status to penicillin; Z3A.38 38 weeks gestation of pregnancy; Z37.0 Single live birth
CPT/HCPCS: 59025; 84112; 85025; 86850; 86900; 86901; 99213